=== PATIENT | female | born 1955 | race American Indian/Alaskan Native ===

== ENCOUNTER 2021-09-12 10:08 | Day surgery (SDC) | payer MEDICARE ==
[2021-09-12] MEDS ORDERED: LACTATED RINGERS 1,000 ML ONE (11:12)
[2021-09-12] MEDS ORDERED: ONDANSETRON 4 MG/2 ML INJ IV PRN (11:19)
[2021-09-12] MEDS ORDERED: HYDROmorphone 1 MG/1 ML INJ IV PRN ×2 (11:19)
--- NOTE | 2021-09-12 11:24 | Anesthesia Consultation ---
Anesthesia Consult and Med Hx Date of service: 09/12/21 - Airway Anesthetic Teeth Evaluation: Bridges ROM Head & Neck: Adequate Mental/Hyoid Distance: Adequate Mallampati Class: Class III Intubation Access Assessment: Probably Good - Pre-Operative Health Status ASA Pre-Surgery Classification: ASA2 Proposed Anesthetic Plan: General - Pre-Anesthesia Comment Pre-Anesthesia Comments: Senstive to pain meds. Had severe throat after intubation; denies difficult intubation - Pulmonary Hx Smoking: No Hx Respiratory Symptoms: No (+2FS) Hx Sleep Apnea: No - Cardiovascular System Hx Hypertension: Yes (ECHO 2019/NST 2018-all ok per patient) Hx Valvular Heart Disease: Yes (MVP-asymptomatic) - Central Nervous System Hx Psychiatric Problems: No - Endocrine Hx Renal Disease: Yes (Hx stones) Hx Non-Insulin Dependent Diabetes: Yes (FBS 130) - Other Systems Hx Alcohol Use: No Hx Substance Use: No Hx Cancer: No
--- NOTE | 2021-09-12 11:27 | Anesthesia Day of Surgery ---
Anesthesia Day of Surgery - Day of Surgery Patient Examined: Yes Patient H&P Reviewed: Yes Patient is NPO: Yes
[2021-09-12] MEDS ORDERED: LACTATED RINGERS 1,000 ML IV SCH (11:45)
[2021-09-12] MEDS ORDERED: MIDAZOLAM 2 MG/2 ML INJ IV NR (12:00)
--- NOTE | 2021-09-12 12:26 | Short Stay Summary ---
Short Stay Documentation Date of service: 09/12/21 Narrative H&P: 65y/o with findings of thickened endometrium of 8mm with cystic findings. The patient has experienced intermittent spotting. - History Principal diagnosis: Postmenopausal bleeding Past Medical History: diabetes, GERD, hypertension, other (pancreatitis; mitral valve prolapse) Past Surgical History: Other (cystectomy) Social history: - Allergies and Medications Current Medications: Allergies No Known Allergies Allergy (Verified 09/06/21 17:09) Home Medications Medication Instructions Recorded Confirmed Last Taken Type Aspirin [Adult Aspirin] 81 mg PO DAILY 09/06/21 09/06/21 Unknown History glyBURIDE [Diabeta] 5 mg PO BID PRN 09/06/21 09/06/21 Unknown History amLODIPine [Norvasc] 10 mg PO DAILY 09/10/21 09/10/21 Unknown History Active Medications Hydromorphone HCl (Hydromorphone 1 Mg/1 Ml Inj) 0.25 mg IV Q10MIN PRN PRN Reason: Pain, Moderate (4-6) Stop: 09/13/21 11:18 Hydromorphone HCl (Hydromorphone 1 Mg/1 Ml Inj) 0.5 mg IV Q10MIN PRN PRN Reason: Pain , Severe (7-10) Stop: 09/13/21 11:18 Lactated Ringer's (Lactated Ringers) 1,000 mls @ 125 mls/hr IV DIRECT ILYA Midazolam HCl (Midazolam 2 Mg/2 Ml Inj) 2 mg IV PREOP NR Stop: 09/12/21 23:59 Ondansetron HCl (Ondansetron 4 Mg/2 Ml Inj) 4 mg IV ONCE PRN PRN Reason: Nausea And Vomiting - Physical exam General appearance: no acute distress Integumentary: no rash HEENT: Atraumatic Lungs: Clear to auscultation Breasts: deferred Heart: Regular rate Gastrointestinal: normal Female Genitourinary: deferred Short Stay Discharge Plan Follow up with: [facility] [Other] - 7 Days Prescriptions: Ibuprofen [Motrin] 800 mg PO Q8HR PRN #30 tablet PRN Reason: Pain , Severe (7-10) HYDROcodone/APAP 5-325 [[place] 5/325] 1 each PO Q6HR PRN #15 tablet PRN Reason: Pain
[2021-09-12] MEDS ORDERED: SILVER NITRATE APPLICATOR 1 EA TP ONE (12:41)
[2021-09-12] MEDS ORDERED: fentaNYL 100 MCG/2 ML INJ ONE (12:45)
[2021-09-12] MEDS ORDERED: LIDOCAINE MPF (2%) 20 MG/1 ML VIAL 5 ML ONE (12:45)
[2021-09-12] MEDS ORDERED: HYDROmorphone 1 MG/1 ML INJ ONE (12:45)
[2021-09-12] MEDS ORDERED: propofoL 200 MG/20 ML VIAL IV ONE (12:46)
[2021-09-12] MEDS ORDERED: SODIUM CHLORIDE 0.9% IRR 1,500 ML BOTTLE IR ONE (13:20)
[2021-09-12] MEDS ORDERED: SODIUM CHLORIDE 0.9% IRRIG SOLN 2000 ML IR ONE (13:21)
--- NOTE | 2021-09-12 13:29 | Operative Report ---
Operative Report Operative Report: Date of procedure:[] Pre-operative diagnosis: [] Post-operative diagnosis: Same as above Procedure name(s): Hysteroscopy; endometrial ablation via NovaSure Surgeon: Bing Cook M.D. Manager General: None Anesthesia: [] Findings[] Indication:[default value] Procedure The patient was taken to the operating room and given general tracheal anesthesia without complication. The patient was prepped and draped in a normal sterile fashion. A bivalve speculum was placed in the patient's vagina single-tooth tenaculums placed on the anterior lip of the cervix. The cervical os was dilated with graduated dilators. A uterine sound was inserted. The hysteroscope was then placed. Insufflation of the uterine cavity was performed with normal saline. Gen. survey of the uterine cavity revealed[default value]. The hysteroscope was then removed. The NovaSure device was then inserted. The endometrial length was[default value] and the uterine width was[default value]. The device was engaged and it passed the surveillance of the uterine cavity. The NovaSure device was then deployed with a energy of[default value] that lasted for[default value]. The NovaSure device was then removed. The hysteroscope was again reinserted. There was evidence of charring of the endometrial surface. The remainder of the vaginal instruments were then removed atraumatically. The patient was then successfully extubated taken to the recovery room. All sponge laps and needle counts were correct 2.
[2021-09-12] MEDS ORDERED: IBUPROFEN 800 MG TAB ONE (14:19)
[2021-09-12] MEDS ORDERED: IBUPROFEN 800 MG TAB PO PRN (14:55)
--- NOTE | 2021-09-12 17:15 | Post Anesthesia Evaluation ---
- Post Anesthesia Evaluation Patient Participated: Yes Airway Patent: Yes Stable Respiratory Function: Yes Nausea/Vomiting: No Temp > 96.8F: Yes Pain Manageable: Yes Adequeate Hydration: Yes Anesthesia Complications: No Block Receding Appropriately: Not Applicable Patient on Ventilator: No
[2021-09-12 18:36] VITALS: BP 127/74
== END 2021-09-12 15:15 | disposition home or self-care (01) ==
LOC: OR 10:08
PROVIDERS: ATTEND Obstetrics & Gynecology
DX: N95.0 Postmenopausal bleeding (principal); I10 Essential (primary) hypertension; E11.9 Type 2 diabetes mellitus without complications; Z79.899 Other long term (current) drug therapy; Z98.890 Other specified postprocedural states
CPT/HCPCS: 58558; 82962; 88305; J2704; J3010; J3490; J7120; J1170